=== PATIENT | male | born 1950 | race Caucasian/White ===

== ENCOUNTER 2022-12-18 06:20 | Observation (INO) ==
--- NOTE | 2022-11-17 10:50 | PAT Medication Instructions ---
Medication Instructions Date of Service November 17, 2022 Home Medications cetirizine 10 mg tablet (Zyrtec) 10 mg PO QAM cholecalciferol (vitamin D3) 50 mcg (2,000 unit) capsule (Vitamin D3) 50 mcg PO QAM coenzyme Q10 100 mg capsule (CoQ-10) 100 mg PO HS fluoxetine 20 mg tablet 20 mg PO QAM lamotrigine 25 mg tablet 100 mg PO QAM levothyroxine 200 mcg tablet (Synthroid) 200 mcg PO QAM levothyroxine 25 mcg tablet (Synthroid) 25 mcg PO QAM multivit,tx w/iron (hematinic) 1 tab PO QAM multivitamin 1 cap PO QAM simvastatin 20 mg tablet 20 mg PO HS tamsulosin 0.4 mg capsule 0.4 mg PO HS STOP taking 2 weeks before surgery coenzyme Q10 100 mg capsule (CoQ-10) 100 mg PO HS DO NOT take the morning of surgery cetirizine 10 mg tablet (Zyrtec) 10 mg PO QAM cholecalciferol (vitamin D3) 50 mcg (2,000 unit) capsule (Vitamin D3) 50 mcg PO QAM multivit,tx w/iron (hematinic) 1 tab PO QAM multivitamin 1 cap PO QAM Take morning of surgery With a small sip of water, OTHERWISE NOTHING TO EAT OR DRINK AFTER MIDNIGHT: fluoxetine 20 mg tablet 20 mg PO QAM lamotrigine 25 mg tablet 100 mg PO QAM levothyroxine 200 mcg tablet (Synthroid) 200 mcg PO QAM levothyroxine 25 mcg tablet (Synthroid) 25 mcg PO QAM Take evening before surgery simvastatin 20 mg tablet 20 mg PO HS tamsulosin 0.4 mg capsule 0.4 mg PO HS Other Notes If you have any questions please call us at [phone] or [phone] or [phone] or [phone]
--- NOTE | 2022-11-24 11:39 | Anesthesiology Consultation ---
Date of Service November 24, 2022 Assessment & Plan (1) Encounter for pre-operative examination: Chart Review Chart Review: Pending: Refer to Additional Notes / Consult section (pending response from neuro on optimization note, most recent cardio note, carotid testing if available, and PCP appt 12/01/22) and Patient seen in Pre Admission Testing - Awaiting routine PCP office visit 12/01/22 - Please send optimization note neuro re: if patient is optimized for surgery (Dr. Cosme- [facility] Jennifer) - Please obtain most recent cardio note and any carotid testing from cardio ([facility] at [place] office (Dr Jenn Marshall)) -Pt is NOT an Outpatient Joint candidate - Check [facility] AM DOS Per PAT appt on 11/24/22, patient denies any recent travel or large group activities. Chronic sinus symptoms- currently well controlled and stable. Pt is vaccinated for Covid. Will leave to surgeon's discretion if preop Covid testing needed. Educated on importance of using Covid precautions one week prior to surgery Teaching & Discussion Pre-Anesthesia Teaching/Discussion Notes: Instructed NPO after midnight before surgery,except medications with 15 cc of water. Medication instructions provided according to the PAT guidelines. History Surgery Operation Date: 12/18/22 09:20 Proposed Procedures p Right Total Shoulder Arthroplasty Reverse - Wisam Hernandez, Height/Weight Height: 5 ft 8 in Weight: 100.9 kg Allergies Allergy/AdvReac Type Severity Reaction Status Date / Time Sulfa (Sulfonamide Allergy Unknown remote hx: Verified 11/13/22 10:43 Antibiotics) ? rxn ? rash Medications Home Medications Medication Instructions Recorded Confirmed Last Taken cetirizine 10 mg tablet (Zyrtec) 10 mg PO QAM 11/13/22 11/13/22 Unknown cholecalciferol (vitamin D3) 50 50 mcg PO QAM 11/13/22 11/13/22 Unknown mcg (2,000 unit) capsule (Vitamin D3) coenzyme Q10 100 mg capsule 100 mg PO HS 11/13/22 11/13/22 Unknown (CoQ-10) fluoxetine 20 mg tablet 20 mg PO QAM 11/13/22 11/13/22 Unknown lamotrigine 25 mg tablet 100 mg PO QAM 11/13/22 11/13/22 Unknown levothyroxine 200 mcg tablet 200 mcg PO QAM 11/13/22 11/13/22 Unknown (Synthroid) levothyroxine 25 mcg tablet 25 mcg PO QAM 11/13/22 11/13/22 Unknown (Synthroid) multivit,tx w/iron (hematinic) 1 tab PO QAM 11/13/22 11/13/22 Unknown multivitamin 1 cap PO QAM 11/13/22 11/13/22 Unknown simvastatin 20 mg tablet 20 mg PO HS 11/13/22 11/13/22 Unknown tamsulosin 0.4 mg capsule 0.4 mg PO HS 11/13/22 11/13/22 Unknown Past Medical History Medical History (Updated 11/25/22 @ 12:03 by Zuleyka Huff PA-C) Anxiety Ascending aorta dilation Mildly dilated ascending aorta at 4.24 cm per 11/13/22 ECHO Chronic sinusitis DAILY SYMPTOMS INCLUDING H/A. NO CHANGE IN BASELINE CURRENTLY. FOLLOWS ENT. MOST RECENT SINUS INFECTION 4 WEEKS AGO. History of anesthesia reaction with first sinus surgery - had to stay hours longer due to headache Hypothyroidism Since iodine ablation (for hyperthyroidism) Memory problem Follows neurology (Dr. Cosme [facility]) Questionable silent seizures - started on lamotrigine several months ago- no episodes since that time Episodes - usually in the morning - occasionally- has short term memory issues during episodes No dementia/Alzheimer's per patient (ruled out) Osteoarthritis Overactive bladder Reactive hypoglycemia needs to eat something in the morning to keep blood sugar up Exercise / Class Metabolic Activity II 4-5 Yardwork/Stairs/Walk up hill (one flight of stairs - no chest pain or SOB ) Past Surgical History Surgical History History of appendectomy History of colonoscopy History of excision of pilonidal cyst History of left knee replacement History of sinus surgery x2 Past Anesthesia History No Hx of Anesthesia Complications and No Family Hx of Anesthesia Complications History of PONV No Hx of PONV and No Hx of Motion Sickness Social History Smoking Status: Never smoker Do You Dip or Chew Tobacco: No (HX , QUIT 40 YR AGO) alcohol intake frequency: other Alcohol Intake Frequency Comment: NOT CURRENT /NONE FOR YRS AT LEAST 3 Hx Substance Use: No substance use type: does not use Review of Systems Patient denies chest pain, shortness of breath, dyspnea on exertion, reflux, cough, wheezing, palpitations. No hx of stroke, RI, apnea/snoring. No hx of blood clots or blood transfusions Physical Exam Vital Signs VITALS BP 155/77 P 52 TEMP 98.0 SP02 97% RESP 16 Constitutional no acute distress ENMT Mouth: no TMJ clicking Thyromental Distance: > or= 3.5 Finger Breadths (3.5) Mallampati Class: III Partial lower denture Missing back and side upper teeth Neck + limited neck extension Respiratory normal respiratory effort; no respiratory distress Auscultation: lungs clear to auscultation bilaterally; no wheezes Cardiovascular Rate/Rhythm: regular rate and regular rhythm Heart Sounds: + murmur (II/ murmur ) Vessels: + carotid bruit (faint carotid bruits bilaterally vs radiation from murmur ) Musculoskeletal Spine: no pain with cervical ROM Extremities: extremities normal to inspection Psychiatric Orientation: alert Lab Results Anesthesia Preop Results Results Anesthesia Widget: WBC 6.04 K/ul (4.8-10.8) 11/24/22 Hgb 13.5 g/dl (14.0-18.0) L 11/24/22 Hct 40.5 % (42.0-52.0) L 11/24/22 Plt 240 K/uL (130-400) 11/24/22 Na 139 mmol/L (136-145) 11/24/22 K 4.6 mmol/L (3.5-5.1) 11/24/22 Cl 104 mmol/L (98-107) 11/24/22 CO2 29 mmol/L (21-32) 11/24/22 BUN 20 mg/dl (6-23) 11/24/22 Creat 1.04 mg/dl (0.6-1.4) 11/24/22 Glucose Level 120 mg/dl (70-99(Fasting)) H 11/24/22 PT 11.4 Seconds (9.0-12.0) 11/24/22 PTT 27.7 Seconds (21.0-31.0) 11/24/22 INR 1.0 (0.9-1.1) 11/24/22 Blood Type A Positive 11/24/22 Antibody Screen NEGATIVE 11/24/22 Testing Electrocardiogram Date: 11/25/22 Findings: + SB @ (50bpm ) Otherwise normal EKG per cardio. Chest X-Ray Date: 11/24/22 FINDINGS: No pneumothorax. No pleural effusions. There are low lung volumes. Mild interstitial thickening at the lung bases persists. The upper lung zones remain clear. No new focal lung consolidations to suggest a pneumonia. No evidence for pulmonary edema. The cardiac silhouette is top normal in size. There is a calcified and tortuous thoracic aorta again noted. IMPRESSION: No significant change compared to the prior study. No acute process. Echocardiogram Date: 11/13/22 EF: 55-60% LV Function: normal RWMA: + none Other Findings: no diastolic dysfunction Valvular Disease: + no significant valvular disease Mildly dilated ascending aorta. Ascending aorta measured at 4.24 cm No pericardial effusion is seen COVID-19 Risk Screen Screening Information COVID-19 Screen Date: 11/24/22 Exposure 21 Days Family/Household +COVID Last 21 Days: No Exposure 10 Days Any COVID Exposure Last 10 Days: No Symptoms Last 10 Days Experienced COVID Sx Last 10 Days: No + COVID 0-90 Days COVID + in Last 0-90 Days: No Risk Plan COVID Risk Plan: No Risk Identified Patient Education COVID Preop Screening Education Complete: Yes
[~2022-12-18 06:20] MED LIST: ACETAMINOPHEN 500 MG TAB PO SCH; GABAPENTIN 300 MG CAP PO SCH; LR 15ML/HR IV SCH; LR 60ML/HR IV SCH; ORTHO JOINT MIX INFIL SCH; TRANEXAMIC ACID 1,000 MG **IV Intra-op IV SCH; TRANEXAMIC ACID 1,000 MG **IV Pre-op IV SCH; ceFAZolin 2000MG 2,000 MG/15 ML SYR IV SCH; dexAMETHasone 4 MG TAB PO SCH
[2022-12-18] MEDS ORDERED: BUPIVACAINE 0.5 % 5 MG/1 ML PF 10ML VIAL ONE (06:28)
[2022-12-18] MEDS ORDERED: LIDOCAINE 2% 2 ML VIAL/AMP(20MG/ML) INFIL ONE (06:42)
[2022-12-18] MEDS ORDERED: ONDANSETRON INJ 2 MG/ML 2 ML VIAL ONE (06:42)
[2022-12-18] MEDS ORDERED: PROPOFOL IV EMULSION 10 MG/ML 20 ML VIAL IV ONE (06:42)
[2022-12-18] MEDS ORDERED: fentaNYL citrate PF 100 MCG/2 ML VIAL ONE (06:43)
[2022-12-18] MEDS ORDERED: MIDAZOLAM HCL 1 MG/ML 2ML VIAL ONE (06:43)
--- NOTE | 2022-12-18 06:54 | History & Physical Bridge Note ---
Date of Service December 18, 2022 History & Physical Bridge Note I have examined the patient, reviewed the History & Physical and in the interval since the performance of the History & Physical I have noted the following changes of clinical significance: no changes noted
[2022-12-18] MEDS ORDERED: ORTHO JOINT ANESTHETIC ONE (07:08)
[2022-12-18] MEDS ORDERED: fentaNYL citrate PF 100 MCG/2 ML VIAL IV PRN (07:46)
[2022-12-18] MEDS ORDERED: ONDANSETRON INJ 2 MG/ML 2 ML VIAL IV PRN ×2 (07:46→10:45)
[2022-12-18] MEDS ORDERED: ATROPINE SULFATE 0.1 MG/ML 10ML SYR IV PRN (07:46)
[2022-12-18] MEDS ORDERED: KETOROLAC 30 MG/ML VIAL IV PRN (07:46)
--- NOTE | 2022-12-18 09:13 | Operative Report ---
PG Post Operative Report Pre & Post Diagnosis Operation Date: 12/18/22 08:00 Pre-Op Diagnosis: Right Shoulder cuff tear arthropathy with tendinopathy long head of biceps tendon Post-Op Diagnosis: Right Shoulder cuff tear arthropathy with tendinopathy long head of biceps tendon I identified the patient and participated in the time-out.: Yes Procedure Operation Date: 12/18/22 08:00 Actual Procedures p Right Reverse Total Shoulder Arthroplasty(Right) with open biceps tenodesis as a distinct and separate procedure (modifier 59)- Wisam Heranndez DO Surgeon Wisam Hernandez DO Ship Keeper Wisam Segovia PA-C Estimated Blood Loss 150 Findings Consistent with Post-Op Diagnosis Specimens Right humeral head Description of Procedure A CPT code modifier 59: The long head of the biceps tendon was enlarged and inflamed consistent with tendinopathy. A tenodesis was opted. This was a separate and distinct portion of the procedure. For these reasons, a CPT code modifier 59 will be added to this case. Implants used: I used a [employer]omet Comprehensive reverse total shoulder arthroplasty system with a size 16 press fit micro humeral stem, a +3 offset humeral tray and a standard humeral bearing, a 25 mm small augment baseplate with a 6.5 mm central screw and superior and inferior locking screws, and a size 40 mm eccentric glenosphere. Deepak arrived at [facility] for the above procedure. He was seen in the preoperative holding area and the operative extremity was identified and signed. He was given a preoperative antibiotic, TXA, and an interscalene nerve block. He was taken back to the operating room, laid on table in supine position, and put under general anesthesia. He was then put into the beachchair position. The shoulder was then prepped and draped in sterile fashion. A timeout was done and the patient and the operative extremity was properly identified. A deltopectoral approach was used. Dissection was taken down through the fascia and the deltoid was retracted laterally and the conjoined tendon was retracted medially. The anterior shoulder was exposed. The biceps groove was opened up and the biceps tendon was examined extensively. The biceps tendon demonstrated enlargement and inflammatory changes consistent with longstanding inflammation in the context of osteoarthritis and cuff arthropathy. The long head of the biceps tendon was then tenodesed to the upper border of the pectoralis major. This was a separate and distinct portion of the procedure. The subscapularis was then directly released off the lesser tuberosity with a peel technique. The inferior capsule was released and the humeral head was dislocated. A canal finding reamer was sent down the center of the humeral canal. Sequential reaming up to a size 16 reamer was done. Off that reamer, a proximal humeral resection guide was placed. The proximal humerus was resected at 135 of inclination and 25 of retroversion. Osteophytes were then removed and the glenoid was exposed. Time was spent doing a complete capsular and labral release. The glenoid guide was then placed in the inferior aspect of the glenoid. A 3.2 mm Steinmann pin was then placed into the glenoid vault at 10 of inclination. The glenoid baseplate was then reamed. The final size 25 mm small augment baseplate was then impacted in the place. A 6.5 mm central screw was then placed followed by superior and inferior locking screws. A 40 mm eccentric glenosphere was then impacted into place. Surrounding soft tissues were then injected with 100 cc an orthopedic pain control cocktail. The proximal humerus was then exposed. Sequential broaching of the humerus up to a size 16 broach was done. Off that broach a +3 offset humeral tray was trialed. The shoulder was then reduced, brought through a full range of motion, and felt to be stable. The shoulder was then dislocated and the broach was removed. The final size 16 micro press-fit humeral stem was then impacted into place. A standard humeral bearing was then snapped onto a +3 offset humeral tray. The humeral tray was then impacted onto the humeral stem. The shoulder was once again reduced, brought through a full range of motion, and felt to be stable. The subscapularis was then tenodesed back to the lesser tuberosity with transosseous FiberWire sutures and side to side sutures with the arm in 45 of external rotation. A dilute betadyne lavage was then done for 3 minutes. The joint was then irrigated with normal saline solution. Hemostasis was obtained. The interval was closed with 2-0 Vicryl suture. The skin was then closed with 2-0 Vicryl and stella. A Silverlon dressing was placed and the arm was rested in a regular arm sling. He was then extubated and transferred to a hospital bed. He taken to the postanesthesia care unit in stable condition. He tolerated the procedure well. Wisam Segovia PA-C, was present for the entire procedure. He was critical for patient positioning, prepping, draping, retraction exposure, wound closure and application of sterile dressing. I attest to the content of the Intraoperative Record and any orders documented therein. Any exceptions are noted below.
[2022-12-18] MEDS ORDERED: MAGNESIUM HYDROXIDE SUSP 30 ML UDC PO PRN (10:45)
[2022-12-18] MEDS ORDERED: bisacodyL 10 MG SUPP PR PRN (10:45)
[2022-12-18] MEDS ORDERED: HYDROmorphone INJ 0.5 MG/0.5 ML SYR IV PRN (10:45)
[2022-12-18] MEDS ORDERED: NALOXONE HCL 0.4 MG/1 ML VIAL/CARP IV PRN (10:45)
[2022-12-18] MEDS ORDERED: METOCLOPRAMIDE HCL INJ 5 MG/ML 2 ML VIAL IV PRN (10:45)
[2022-12-18] MEDS ORDERED: oxyCODONE HCL IR 5 MG TAB (IMMEDIATE RELEASE) PO PRN (10:45)
[2022-12-18] MEDS: SODIUM CHLORIDE 0.9% 1000ML 1,000 ML IV SCH ×2 (11:07→20:35)
[2022-12-18] MEDS: KETOROLAC TROMETHAMINE 15 MG/ML VIAL IV SCH ×3 (11:14→23:03)
--- NOTE | 2022-12-18 11:19 | XRay Report ---
XR shoulder RT min 2V routine CLINICAL HISTORY: Post shoulder surgery COMPARISON STUDY: None. FINDINGS: Status post reverse right total shoulder arthroplasty. Hardware appears intact. No fracture or dislocation. Skin stella are in place. IMPRESSION: Status post reverse right total shoulder arthroplasty. No evidence for hardware complica tion. ACT 112: Negative or not required by law. Electronically signed by: Dayo Morley M.D. 12/18/2022 11:17 AM
--- NOTE | 2022-12-18 12:23 | Anesthesiology Progress Note ---
Date of Service December 18, 2022 Anesthesia Post Procedure Vital Signs Vital Signs: Temp Pulse Pulse Resp BP Pulse Ox O2 Del Method 12/18/22 11:10 37.2 C 62 15 143/77 H 97 Room Air 12/18/22 10:40 36.6 C 60 16 118/67 97 Room Air 12/18/22 10:20 60 19 115/60 92 Room Air 12/18/22 10:10 56 L 17 125/64 93 Room Air 12/18/22 10:00 36 C L 52 L 19 123/66 93 Room Air 12/18/22 09:50 52 L 21 120/61 94 Room Air 12/18/22 09:40 58 L 19 132/68 95 Room Air 12/18/22 09:32 36.1 C L 58 L 13 126/60 94 Room Air 12/18/22 07:05 36.6 C 57 L 18 141/79 H 96 Room Air Transfer of Care Handoff Completed per policy Notes Mental Status: alert / awake / arousable Patient Amnestic to Procedure: Yes Nausea / Vomiting: adequately controlled Pain: adequately controlled Airway Patency, RR, SpO2: stable & adequate BP & HR: stable & adequate Hydration State: stable & adequate Anesthetic Complications: no major complications apparent
[2022-12-18] MEDS: ACETAMINOPHEN 500 MG TAB PO SCH ×2 (13:15→23:03)
[2022-12-18] MEDS: ceFAZolin 2000MG 2,000 MG/15 ML SYR IV SCH ×2 (15:23→23:03)
[2022-12-18] MEDS: DOCUSATE SODIUM 100 MG CAP PO SCH (20:37)
[2022-12-18] MEDS ORDERED: TAMSULOSIN HCL 0.4 MG CAP PO SCH (21:00)
[2022-12-18] MEDS ORDERED: SIMVASTATIN 20 MG TAB PO SCH (21:00)
[2022-12-18] MEDS ORDERED: SENNA 8.6 MG TAB PO SCH (21:00)
[2022-12-19] MEDS: ACETAMINOPHEN 500 MG TAB PO SCH (04:54)
[2022-12-19] MEDS: KETOROLAC TROMETHAMINE 15 MG/ML VIAL IV SCH (04:55)
--- NOTE | 2022-12-19 06:02 | Orthopedic Progress Note ---
Date of Service December 19, 2022 Assessment & Plan (1) Status post reverse total replacement of right shoulder: Overall he is doing very well. He is not having much pain in the right shoulder. He will be seen by physical therapy today for ambulation and range of motion exercises. He can be discharged home later today. He will follow-up with orthopedics in 2 weeks. Lakia Sotelo was seen and examined at bedside this morning. Overall is doing very well. He is not having much pain in the right shoulder. He was able to get some sleep last night. Has no complaints.. Review of Systems All systems reviewed & are unremarkable except as noted in HPI & below. Physical Exam On physical examination of the right shoulder, the dressing is clean and dry. He has active motion of his hand and his wrist. He is wearing his sling as instructed.. Results & Data Results & Data Laboratory Results . Diagnostic Findings Postoperative x-rays of the right shoulder show the prosthesis to be in anatomic alignment without any evidence of fracture, screws, or loosening. PG Care Time/CCT Total # of Minutes Spent Total Time Spent with Patient: Total time spent is greater than 50% in coordination of care (as documented) at patient's floor/unit and/or counseling patient: Coding Level of Care Code 14332 Post Operative Follow-Up Diagnoses Status post reverse total replacement of right shoulder Z96.611
--- NOTE | 2022-12-19 06:03 | Discharge Summary ---
Date of Service December 19, 2022 Principal Diagnosis Same as "Discharge Diagnosis" noted below under Discharge Instructions. Discharge Exam On physical examination of the right shoulder, the dressing is clean and dry. He has active motion of his hand and his wrist. He is wearing his sling as instructed.. Discharge Data Procedures Performed Operation Date: 12/18/22 08:00 Actual Procedures p Right Reverse Total Shoulder Arthroplasty(Right) - Wisam Hernandez DO Ordered Studies 12/18/22 05:00 US - OR guided needle placemen Routine Hospital Course (1) Status post reverse total replacement of right shoulder: On December 18, 2022 Deepak arrived at [facility] and underwent a right reverse shoulder replaced without complication. He had a general anesthetic and a right interscalene nerve block. Postoperatively he was placed in a sling and transferred to the general orthopedic floors. His hospital course was uneventful. On postop day #1, his vital signs were stable and his pain was well controlled. He was able to participate well with physical therapy doing ambulation and range of motion exercises. He was then discharged home. He will follow-up with orthopedics in 2 weeks. PG Care Time/CCT Total # of Minutes Spent Total Time Spent with Patient: Total time spent is greater than 50% in coordination of care (as documented) at patient's floor/unit and/or counseling patient: Discharge Plan Discharge Items Patient Disposition: Home - Home Health Services Reason For Visit: Right Shoulder Degenerative Joint Disease Discharge Diagnosis: Right reverse shoulder replacement Activity: Resume your previous activity Non-emergency contact: Surgeon Call non-emergency contact if: your wound has increased redness and your wound has increased drainage Follow-up/Referrals: Naresh Booth D.O. [Primary Care Provider] - Diet: Regular Addtl Attending Provider Instructions: Activity and Therapy Recommendations: * If you are using [facility] then therapy will be provided at your home until they feel you have accomplished all of your goals. * If you are using [facility] then Physical Therapy will be provided until they feel you are ready to start Outpatient Physical Therapy. * If you are not using home therapy then Outpatient Physical Therapy should start about 3-5 days from your day of surgery. Therapy will last about 8-12 weeks * Wear your sling for 3 weeks, unless otherwise instructed. You may remove your sling to shower and to dress, but otherwise, you should be in your sling at all times, including while sleeping * The shoulder replacement is very stable and you can use your hand while in the sling * You were shown a series of exercises in the hospital. Do these exercises daily including the exercises you were shown in physical therapy. Medications: * Narcotic You will likely be sent home from the hospital with a prescription for the narcotic pain medication that worked best throughout your stay. * Other medications may be prescribed for specific circumstances. If you have any questions, please call the office at . * Resume previous home medications unless otherwise instructed Dressing Care: Leave the Silverlon dressing in place for 7 days. After 7 days you may remove the dressing. If the incision is not draining then you may leave the stella open to air. If there is a little bit of drainage or if the stella are getting stuck on your clothing then cover the incision with a dry dressing. The stella will be removed at your 2 week follow-up appointment. Showering: You may shower with the Silverlon dressing in place. Do not let the shower spray hit the dressing directly. Pat the Silverlon dressing dry. If the dressing becomes wet underneath, then simply remove the dressing. Keep the incision dry until you are 7 days out from the day of surgery. After 7 days you may remove the Silverlon dressing and shower with the stella exposed. Let soapy water run over the stella and pat them dry. Do not scrub or soak the incision. Things To Watch For: * Drainage from the incision site that occurs more than one week after your surg yareli. * Increased redness at the incision site. * Fever above 102 degrees Fahrenheit. * Unusual chest pain or shortness of breath. * Call [facility] at with any of the above problems Follow-Up Visit: Follow-up with Dr. Hernandez's PA (Wisam Segovia) 2-3 weeks after your day of surgery. He will remove your stella and answer any questions. If you have any additional questions or concerns, Dr Hernandez is usually in the office at the same time and will be available An appointment was probably scheduled when you signed-up for surgery in the [facility]. If you have any questions call More detailed instructions as well as Frequently Asked Questions were provided in a folder by our office when you signed-up for surgery. Please review these instructions when you get home. If you have any further questions or concerns, please feel free to call the office at [phone] Pending Studies at Discharge: No Stand-Alone Forms: My [facility], Smoking Cessation Medications and DC Order Prescriptions: New oxycodone-acetaminophen 5-325 mg tablet 1 tab PO Q6H PRN (Reason: pain) Qty: 30 0RF Continued cetirizine [Zyrtec] 10 mg Tablet 10 mg PO QAM levothyroxine [Synthroid] 25 mcg Tablet 25 mcg PO QAM lamotrigine [Lamictal] 25 mg Tablet 100 mg PO QAM tamsulosin 0.4 mg Capsule 0.4 mg PO HS simvastatin 20 mg Tablet 20 mg PO HS fluoxetine 20 mg Tablet 20 mg PO QAM levothyroxine [Synthroid] 200 mcg Tablet 200 mcg PO QAM multivitamin Capsule 1 cap PO QAM B Complex Plus Vitamin C Tablet 1 tab PO QAM coenzyme Q10 [CoQ-10] 100 mg Capsule 100 mg PO HS cholecalciferol (vitamin D3) [Vitamin D3] 50 mcg (2,000 unit) Capsule 50 mcg PO QAM Admission Data Admit Date/Time: 12/18/22 09:31 Attending Provider: Wisam Hernandez Admit Provider: Wisam Hernandez Primary Care Provider: Naresh Booth
[2022-12-19] MEDS ORDERED: LEVOTHYROXINE SODIUM 200 MCG TABLET PO SCH (06:30)
[2022-12-19] MEDS ORDERED: LEVOTHYROXINE SODIUM 25 MCG TABLET PO SCH (06:30)
[2022-12-19] MEDS ORDERED: dexAMETHasone 4 MG TAB PO SCH (08:00)
[2022-12-19] MEDS: DOCUSATE SODIUM 100 MG CAP PO SCH (08:51)
[2022-12-19] MEDS ORDERED: MULTIVITAMIN TAB PO SCH (09:00)
[2022-12-19] MEDS ORDERED: FLUoxetine HCL 20 MG CAP PO SCH (09:00)
[2022-12-19] MEDS ORDERED: lamoTRIgine 100 MG TAB PO SCH (09:00)
[2022-12-19] MEDS ORDERED: CETIRIZINE HCL 10 MG TABLET PO SCH (09:00)
== END 2022-12-19 11:24 | disposition home health service (06) ==
LOC: 3E 06:20 → ASU 06:20

== ENCOUNTER 2024-09-11 10:04 | Observation (INO) ==
--- NOTE | 2024-08-14 15:42 | PAT Medication Instructions ---
Medication Instructions Date of Service August 14, 2024 Home Medications Medication Instructions Recorded oxycodone-acetaminophen 5 mg-325 1 tab PO Q6H PRN pain #30 tabs 12/19/ mg tablet amoxicillin 500 mg tablet 2,000 mg (4 x 500 mg) PO ONCE #4 08/01/ tabs cetirizine 10 mg tablet (Zyrtec) 10 mg PO QAM cholecalciferol (vitamin D3) 50 mcg (2,000 unit) capsule (Vitamin D3) 50 mcg PO QAM fluoxetine 20 mg tablet 20 mg PO QAM lamotrigine 25 mg tablet (Lamictal) 100 mg PO QAM levothyroxine 200 mcg tablet (Synthroid) 200 mcg PO QAM multivitamin 1 cap PO QAM simvastatin 20 mg tablet 20 mg PO HS tamsulosin 0.4 mg capsule 0.4 mg PO HS oxycodone-acetaminophen 5 mg-325 mg tablet 1 tab PO Q6H PRN amoxicillin 500 mg tablet 2,000 mg (4 x 500 mg) PO ONCE Gentamicin Nasal Solution 1 dose NA DAILY ibuprofen 800 mg tablet 800 mg PO Q8H PRN lamotrigine 50 mg tablet,extended release 24 hr 50 mg PO HS magnesium 200 mg tablet 400 mg PO QAM Continue as directed amoxicillin 500 mg tablet 2,000 mg (4 x 500 mg) PO ONCE Gentamicin Nasal Solution 1 dose NA DAILY ASK your surgeon for instructions ibuprofen 800 mg tablet 800 mg PO Q8H PRN DO NOT take the morning of surgery cetirizine 10 mg tablet (Zyrtec) 10 mg PO QAM cholecalciferol (vitamin D3) 50 mcg (2,000 unit) capsule (Vitamin D3) 50 mcg PO QAM multivitamin 1 cap PO QAM magnesium 200 mg tablet 400 mg PO QAM Take morning of surgery With a small sip of water, OTHERWISE NOTHING TO EAT OR DRINK AFTER MIDNIGHT: fluoxetine 20 mg tablet 20 mg PO QAM lamotrigine 25 mg tablet (Lamictal) 100 mg PO QAM levothyroxine 200 mcg tablet (Synthroid) 200 mcg PO QAM oxycodone-acetaminophen 5 mg-325 mg tablet 1 tab PO Q6H PRN(if needed) Take evening before surgery simvastatin 20 mg tablet 20 mg PO HS tamsulosin 0.4 mg capsule 0.4 mg PO HS oxycodone-acetaminophen 5 mg-325 mg tablet 1 tab PO Q6H PRN(if needed) lamotrigine 50 mg tablet,extended release 24 hr 50 mg PO HS Other Notes If you have any questions please call us at [phone] or [phone] or [phone] or [phone]
--- NOTE | 2024-08-22 10:04 | Anesthesiology Consultation ---
Date of Service August 22, 2024 Assessment & Plan (1) Encounter for pre-operative examination: - Check BSG DOS (hx hypoglycemia episodes, especially when fasting) - Infectious disease screening: Per assessment on 08/22/24- No known recent infectious disease contacts or current infectious disease symptoms. - Outpatient joint assessment: Pt currently scheduled for inpatient pathway. If surgeon requests review for outpatient joint pathway, patient is not recommended candidate for outpatient joint program from anesthesia standpoint based on available information. - S/P Right reverse TSA (12/18/22): LMA#5 + regional at [facility] - Neurologic hx: Memory impairment. No dementia/Alzheimer's per patient (ruled out). Questionable silent seizures. Following with neurology. Resolution in episodes after starting lamotrigine several months ago. Note written to neurology regarding upcoming surgery- Awaiting neurology response ([facility] neurology). Patient otherwise acceptable risk for surgery. Chart Review Chart Review: Patient seen in Pre Admission Testing Teaching & Discussion Pre-Anesthesia Teaching/Discussion Notes: Instructed NPO after midnight before surgery,except medications with 15 cc of water. Medication instructions provided according to the PAT guidelines. History Surgery Operation Date: 09/11/24 08:00 Proposed Procedures p Left Reverse Total Shoulder Arthroplasty - Wisam Hernandez, DO Height/Weight Height: 5 ft 9 in Weight: 101 kg Allergies Allergy/AdvReac Type Severity Reaction Status Date / Time Sulfa (Sulfonamide Allergy Unknown Unknown Verified 08/17/24 15:50 Antibiotics) Medications Home Medications Medication Instructions Recorded Confirmed Last Taken cetirizine 10 mg tablet (Zyrtec) 10 mg PO QAM 11/13/22 08/10/24 12/16/22 cholecalciferol (vitamin D3) 50 50 mcg PO QAM 11/13/22 08/10/24 12/17/22 07:30 mcg (2,000 unit) capsule (Vitamin D3) fluoxetine 20 mg tablet 20 mg PO QAM 11/13/22 08/10/24 12/18/22 05:15 lamotrigine 25 mg tablet (Lamictal) 100 mg PO QAM 11/13/22 08/10/24 12/18/22 05:15 levothyroxine 200 mcg tablet 200 mcg PO QAM 11/13/22 08/10/24 12/18/22 05:15 (Synthroid) multivitamin 1 cap PO QAM 11/13/22 08/10/24 12/17/22 07:30 simvastatin 20 mg tablet 20 mg PO HS 11/13/22 08/10/24 12/17/22 21:00 tamsulosin 0.4 mg capsule 0.4 mg PO HS 11/13/22 08/10/24 12/17/22 21:00 oxycodone-acetaminophen 5 mg-325 1 tab PO Q6H PRN pain #30 tabs 12/19/22 08/10/24 Unknown mg tablet amoxicillin 500 mg tablet 2,000 mg (4 x 500 mg) PO ONCE #4 08/01/24 08/10/24 Unknown tabs Gentamicin Nasal Solution 1 dose NA DAILY 08/10/24 08/10/24 Unknown ibuprofen 800 mg tablet 800 mg PO Q8H PRN Pain 08/10/24 08/10/24 Unknown lamotrigine 50 mg tablet,extended 50 mg PO HS 08/10/24 08/10/24 Unknown release 24 hr magnesium 200 mg tablet 400 mg PO QAM 08/10/24 08/10/24 Unknown Past Medical History Medical History Anxiety Ascending aorta dilation Mildly dilated ascending aorta at 4.24 cm per 11/13/[address] Marshall [facility] Chronic sinusitis Improved/controlled after most recent sinus surgery Hypoglycemia "Needs to eat something in the morning to keep blood sugar up" Hypothyroidism Since iodine ablation (for hyperthyroidism) Memory problem No dementia/Alzheimer's per patient (ruled out). Questionable silent seizures . Following with neurology (Dr. Cosme/[facility]). Resolution in episodes after starting lamotrigine several months ago. Osteoarthritis Overactive bladder Exercise / Class Metabolic Activity II 4-5 Yardwork/Stairs/Walk up hill Past Surgical History Surgical History History of anesthesia reaction with first sinus surgery - had to stay hours longer due to headache History of appendectomy History of cholecystectomy History of colonoscopy History of excision of pilonidal cyst History of left knee replacement History of sinus surgery x2 History of tooth extraction Status post reverse total arthroplasty of right shoulder Right reverse TSA (12/18/22): LMA#5 + regional at [facility] Past Anesthesia History No Family Hx of Anesthesia Complications and Other (first sinus surgery - had to stay hours longer due to headache ) History of PONV No Hx of PONV and No Hx of Motion Sickness Social History Smoking Status: Never smoker Do You Dip or Chew Tobacco: No (Remote hx/quit) Hx Alcohol Use: No alcohol intake frequency: other Hx Substance Use: No substance use type: does not use Review of Systems Patient denies chest pain, shortness of breath, dyspnea on exertion, fever, chills, cough, wheezing, palpitations. Physical Exam Vital Signs BP 147/70 P 55 TEMP 97.6 SP02 97%RA RESP 16 Physical Full cervical extension range of motion. Full TMJ range of motion. TMD 3 finger breaths Mallampati Score III Dentition: lower partial Lungs: clear throughout to auscultation Cardiac: regular rate and rhythm, no murmurs noted Spine: normal Carotid arteries: negative bruit Extremities: no LE edema Lab Results Anesthesia Preop Results Results Anesthesia Widget: WBC 7.99 K/ul (4.8-10.8) 08/22/24 Hgb 14.4 g/dl (14.0-18.0) 08/22/24 Hct 42.6 % (42.0-52.0) 08/22/24 Plt 254 K/uL (130-400) 08/22/24 Na 138 mmol/L (136-145) 08/22/24 K 4.7 mmol/L (3.5-5.1) 08/22/24 Cl 103 mmol/L (98-107) 08/22/24 CO2 31 mmol/L (21-32) 08/22/24 BUN 22 mg/dl (6-23) 08/22/24 Creat 1.06 mg/dl (0.6-1.4) 08/22/24 Glucose Level 94 mg/dl (70-99(Fasting)) 08/22/24 PT 11.3 Seconds (9.0-12.0) 08/22/24 PTT 28 Seconds (21-31) 08/22/24 INR 1.0 (0.9-1.1) 08/22/24 Blood Type A Positive 08/22/24 Antibody Screen NEGATIVE 08/22/24 Testing Electrocardiogram Date: 08/22/24 SB at 46bpm. LAD. RBBB. Minimal voltage criteria for LVH, may be normal variant. Chest X-Ray Date: 08/22/24 FINDINGS: There is stable mild cardiomegaly with mild pulmonary vascular congestion. Inspiration is shallow. Stable minimal stranding in the lung bases, likely scarring or atelectasis. No new consolidation or pleural effusion. No pneumothorax. IMPRESSION: Stable exam. Echocardiogram Date: 11/13/22 LVEF 55-60%. Mildly dilated ascending aorta. Trivial AR. Ascending aorta measured at 4.24cm. No RWMA. No pericardial effusion.
[~2024-09-11 10:04] MED LIST changes: -ACETAMINOPHEN 500 MG TAB PO SCH; +BUPIVACAINE 0.5 % 5 MG/1 ML PF 10ML VIAL ONE; -GABAPENTIN 300 MG CAP PO SCH; -LR 15ML/HR IV SCH; -LR 60ML/HR IV SCH; -ORTHO JOINT MIX INFIL SCH; -TRANEXAMIC ACID 1,000 MG **IV Intra-op IV SCH; -TRANEXAMIC ACID 1,000 MG **IV Pre-op IV SCH; -ceFAZolin 2000MG 2,000 MG/15 ML SYR IV SCH; -dexAMETHasone 4 MG TAB PO SCH
[2024-09-11] MEDS ORDERED: MIDAZOLAM HCL 1 MG/ML 2ML VIAL ONE (10:51)
[2024-09-11] MEDS ORDERED: fentaNYL citrate PF 100 MCG/2 ML VIAL ONE (10:51)
[2024-09-11] MEDS ORDERED: LIDOCAINE 2% 2 ML VIAL/AMP(20MG/ML) INFIL ONE (10:52)
[2024-09-11] MEDS ORDERED: ONDANSETRON INJ 2 MG/ML 2 ML VIAL ONE (10:52)
[2024-09-11] MEDS ORDERED: PROPOFOL IV EMULSION 10 MG/ML 20 ML VIAL IV ONE (10:52)
[2024-09-11] MEDS ORDERED: DEXAMETHASONE SOD INJ 4 MG/ML VIAL ONE (10:52)
[2024-09-11] MEDS: LR 500ML BOLUS, THEN 15ML/HR IV SCH (11:01)
[2024-09-11] MEDS: dexAMETHasone**PF** 10 MG/ML VIAL IV SCH (11:02)
[2024-09-11] MEDS: LR 60ML/HR IV SCH (11:03)
[2024-09-11] MEDS: ACETAMINOPHEN 500 MG TAB PO SCH ×2 (11:03→15:32)
[2024-09-11] MEDS: FAMOTIDINE 20 MG TAB PO SCH (11:03)
[2024-09-11] MEDS: GABAPENTIN 300 MG CAP PO SCH (11:03)
[2024-09-11] MEDS ORDERED: ePHEDrine sulfate 50 MG/ML AMP ONE (11:12)
--- NOTE | 2024-09-11 11:24 | History & Physical Bridge Note ---
Date of Service September 11, 2024 History & Physical Bridge Note I have examined the patient, reviewed the History & Physical and in the interval since the performance of the History & Physical I have noted the following changes of clinical significance: no changes noted
[2024-09-11] MEDS ORDERED: fentaNYL citrate PF 100 MCG/2 ML VIAL IV PRN (11:47)
[2024-09-11] MEDS ORDERED: ONDANSETRON INJ 2 MG/ML 2 ML VIAL IV PRN ×2 (11:47→14:31)
[2024-09-11] MEDS ORDERED: ATROPINE SULFATE 0.1 MG/ML 10ML SYR IV PRN (11:47)
[2024-09-11] MEDS ORDERED: ePHEDrine sulfate 50 MG/ML AMP IV PRN (11:47)
[2024-09-11] MEDS: TRANEXAMIC ACID 1,000 MG **IV Pre-op IV SCH (11:57)
[2024-09-11] MEDS: ceFAZolin 2000MG 2,000 MG/15 ML SYR IV SCH ×2 (12:20→20:21)
[2024-09-11] MEDS: ROPIV 0.5% 246mg, Ketorolac 30mg, EPINEPHrine 0.5mg in NSS INFIL SCH (13:00)
[2024-09-11] MEDS: TRANEXAMIC ACID 1,000 MG **IV Intra-op IV SCH (13:11)
[2024-09-11] MEDS: ORTHO JOINT ANESTHETIC ONE (13:19)
--- NOTE | 2024-09-11 13:24 | Operative Report ---
PG Post Operative Report Pre & Post Diagnosis Operation Date: 09/11/24 12:00 Pre-Op Diagnosis: Cuff tear arthropathy of the left shoulder Post-Op Diagnosis: Cuff tear arthropathy of the left shoulder I identified the patient and participated in the time-out.: Yes Procedure Operation Date: 09/11/24 12:00 Actual Procedures p Left Reverse Total Shoulder Arthroplasty(Left) - Wisam Hernandez DO Surgeon Wisam Hernandez DO Float Remover Kingston Rosario PA-C Estimated Blood Loss 150 Findings Consistent with Post-Op Diagnosis Specimens Left humeral head Description of Procedure Implants used: I used a [employer] Comprehensive reverse total shoulder arthroplasty system with a size 13 press fit micro humeral stem, a +3 offset humeral tray and a standard humeral bearing, a 25 mm small augment baseplate with a 6.5 mm central screw and superior and inferior locking screws, and a size 40 mm eccentric glenosphere. Deepak arrived at [facility] for the above procedure. He was seen in the preoperative holding area and the operative extremity was identified and signed. He was given a preoperative antibiotic, TXA, and an interscalene nerve block. He was taken back to the operating room, laid on table in supine position, and put under general anesthesia. He was then put into the beachchair position. The shoulder was then prepped and draped in sterile fashion. A timeout was done and the patient and the operative extremity was properly identified. A deltopectoral approach was used. Dissection was taken down through the fascia and the deltoid was retracted laterally and the conjoined tendon was retracted medially. The anterior shoulder was exposed. The biceps tendon was chronically torn. The subscapularis was then directly released off the lesser tuberosity with a peel technique. The inferior capsule was released and the humeral head was dislocated. A canal finding reamer was sent down the center of the humeral canal. Sequential reaming up to a size 13 reamer was done. Off that reamer, a proximal humeral resection guide was placed. The proximal humerus was resected at 135 of inclination and 25 of retroversion. Osteophytes were then removed and the glenoid was exposed. Time was spent doing a complete capsular and labral release. The glenoid guide was then placed in the inferior aspect of the glenoid. A 3.2 mm Steinmann pin was then placed into the glenoid vault at 10 of inclination. The glenoid baseplate was then reamed. The final size 25 mm small augment baseplate was then impacted in the place. A 6.5 mm central screw was then placed followed by superior and inferior locking screws. A 40 mm eccentric glenosphere was then impacted into place. Surrounding soft tissues were then injected with 100 cc an orthopedic pain control cocktail. The proximal humerus was then exposed. Sequential broaching of the humerus up to a size 13 broach was done. Off that broach a +3 offset humeral tray was trialed. The shoulder was then reduced, brought through a full range of motion, and felt to be stable. The shoulder was then dislocated and the broach was removed. The final size 13 micro press-fit humeral stem was then impacted into place. A standard humeral bearing was then snapped onto a +3 offset humeral tray. The humeral tray was then impacted onto the humeral stem. The shoulder was once again reduced, brought through a full range of motion, and felt to be stable. The subscapularis was poor quality and unable to be repaired. A dilute betadyne lavage was then done for 3 minutes. The joint was then irrigated with normal saline solution. Hemostasis was obtained. The interval was closed with 2-0 Vicryl suture. The skin was then closed with 2-0 Vicryl and stella. A Silverlon dressing was placed and the arm was rested in a regular arm sling. He was then extubated and transferred to a hospital bed. He taken to the postanesthesia care unit in stable condition. He tolerated the procedure well. Kingston Rosario PA-C, was present for the entire procedure. He was critical for patient positioning, prepping, draping, retraction exposure, wound closure and application of sterile dressing. I attest to the content of the Intraoperative Record and any orders documented therein. Any exceptions are noted below.
[2024-09-11] MEDS ORDERED: MAGNESIUM HYDROXIDE SUSP 30 ML UDC PO PRN (14:31)
[2024-09-11] MEDS ORDERED: NALOXONE HCL 0.4 MG/1 ML VIAL/CARP IV PRN (14:31)
[2024-09-11] MEDS ORDERED: METOCLOPRAMIDE HCL INJ 5 MG/ML 2 ML VIAL IV PRN (14:31)
[2024-09-11] MEDS ORDERED: bisacodyL 10 MG SUPP PR PRN (14:31)
[2024-09-11] MEDS ORDERED: oxyCODONE HCL IR 5 MG TAB (IMMEDIATE RELEASE) PO PRN (14:31)
[2024-09-11] MEDS ORDERED: HYDROmorphone INJ 0.5 MG/0.5 ML SYR IV PRN (14:31)
[2024-09-11] MEDS: BUPIVACAINE LIPOSOME 1.3% 133 MG/10 ML VIAL ONE (14:32)
--- NOTE | 2024-09-11 14:34 | XRay Report ---
XR shoulder LT min 2V routine CLINICAL HISTORY: Post shoulder surgery COMPARISON: Left shoulder radiographs August 22, 2024. FINDINGS: Alignment of the reverse total left shoulder arthroplasty is anatomic. There is no peripro sthetic fracture or unexpected radiopaque foreign body. There are skin stella. IMPRESSION: Expected findings following reverse total left shoulder arthroplasty. ACT 112: Negative or not required by law. Electronically signed by: Gianni Man M.D. 09/11/2024 2:32 PM
--- NOTE | 2024-09-11 14:49 | Anesthesiology Progress Note ---
Date of Service September 11, 2024 Anesthesia Post Procedure Vital Signs Vital Signs: Temp Pulse Pulse Resp BP Pulse Ox O2 Del Method 09/11/24 14:30 36.4 C L 66 16 129/71 94 Room Air 09/11/24 14:10 63 22 115/62 94 Room Air 09/11/24 14:00 36.5 C 61 13 127/70 94 Room Air 09/11/24 13:50 65 21 140/64 94 Room Air 09/11/24 13:40 65 18 133/65 95 Oxymask 09/11/24 13:32 36.5 C 77 16 130/65 97 Oxymask 09/11/24 10:41 36.8 C 58 L 18 144/77 H 96 Room Air O2 Flow Rate 09/11/24 14:30 09/11/24 14:10 09/11/24 14:00 09/11/24 13:50 09/11/24 13:40 9 09/11/24 13:32 9 09/11/24 10:41 Transfer of Care Handoff Completed per policy Notes Mental Status: alert / awake / arousable and participated in evaluation Patient Amnestic to Procedure: Yes Nausea / Vomiting: adequately controlled Pain: adequately controlled Airway Patency, RR, SpO2: stable & adequate BP & HR: stable & adequate Hydration State: stable & adequate Anesthetic Complications: no major complications apparent and Pt Satisfied with anesthetic care
[2024-09-11] MEDS: KETOROLAC TROMETHAMINE 15 MG/ML VIAL IV SCH (15:33)
[2024-09-11] MEDS ORDERED: ceFAZolin 1000MG 1,000 MG/7.5 ML SYR IV SCH (19:45)
[2024-09-11] MEDS: lamoTRIgine 25 MG TAB PO SCH (20:22)
[2024-09-11] MEDS: SENNA 8.6 MG TAB PO SCH (20:22)
[2024-09-11] MEDS: DOCUSATE SODIUM 100 MG CAP PO SCH (20:22)
[2024-09-11] MEDS: TAMSULOSIN HCL 0.4 MG CAP PO SCH (20:23)
[2024-09-11] MEDS: SIMVASTATIN 20 MG TAB PO SCH (20:23)
[2024-09-12 03:10] VITALS: RESP 16
[2024-09-12] MEDS: LEVOTHYROXINE SODIUM 200 MCG TABLET PO SCH (06:06)
[2024-09-12 07:11] VITALS: BP 117/64; PULSE 54; TEMP 97.5; O2SAT 96
[2024-09-12] MEDS: MULTIVITAMIN TAB PO SCH (08:28)
[2024-09-12] MEDS: FLUoxetine HCL 20 MG CAP PO SCH (08:28)
[2024-09-12] MEDS: dexAMETHasone 4 MG TAB PO SCH (08:28)
[2024-09-12] MEDS: lamoTRIgine 100 MG TAB PO SCH (08:28)
--- NOTE | 2024-09-12 12:39 | Orthopedic Progress Note ---
Date of Service September 12, 2024 Assessment & Plan (1) Status post reverse total replacement of left shoulder: Assessment: Status post left reverse total shoulder arthroplasty. Plan: Overall, he is doing quite well today with good pain control left shoulder. He will work with physical therapy later this morning to work on range of motion exercises. He should remain in his sling until he status post 3 weeks. His dressing should remain in place until 7 days. After 7 days he may take off the Silverlon dressing. He can be discharged home later this morning after formal recommendations from physical therapy. He will follow-up with orthopedics in 2 weeks. He verbalized understanding and agrees with this plan. Subjective . Deepak was seen and evaluated this morning resting comfortably no apparent distress. He notes his pain is well-controlled to the left shoulder today. He is in his sling as directed. He has been up and out of bed without any significant issues. He has yet to work with physical therapy this morning. He denies any concerns with surgical incision site. Denies any active bleeding, discharge, or signs infection. He denies any other concerns today. Review of Systems All systems reviewed & are unremarkable except as noted in HPI & below. Physical Exam . On physical examination of the left shoulder, his dressing is intact, clean, dry, in place. No signs of active bleeding, discharge, or signs of infection. His left arm is in a sling as directed. He will wiggle all 5 digits. +2 radial pulse. Less than 2-second capillary refill. Normal sensation. Neurovascular intact. Results & Data Results & Data Laboratory Results . Diagnostic Findings . Shoulder X-Ray 09/11/24 13:34 XR shoulder LT min 2V routine CLINICAL HISTORY: Post shoulder surgery COMPARISON: Left shoulder radiographs August 22, 2024. FINDINGS: Alignment of the reverse total left shoulder arthroplasty is anatomic. There is no periprosthetic fracture or unexpected radiopaque foreign body. There are skin stella. IMPRESSION: Expected findings following reverse total left shoulder arthroplasty. ACT 112: Negative or not required by law. Electronically signed by: Gianni Man M.D. 09/11/2024 2:32 PM PG Care Time/CCT Total # of Minutes Spent Total Time Spent with Patient: Total time spent is greater than 50% in coordination of care (as documented) at patient's floor/unit and/or counseling patient: Coding Level of Care Code 58882 Post Operative Follow-Up Diagnoses Status post reverse total replacement of left shoulder Z96.612
--- NOTE | 2024-09-12 12:40 | Discharge Summary ---
Date of Service September 12, 2024 Principal Diagnosis Same as "Discharge Diagnosis" noted below under Discharge Instructions. Discharge Exam . On physical examination of the left shoulder, his dressing is intact, clean, dry, in place. No signs of active bleeding, discharge, or signs of infection. His left arm is in a sling as directed. He will wiggle all 5 digits. +2 radial pulse. Less than 2-second capillary refill. Normal sensation. Neurovascular intact. Discharge Data Procedures Performed Operation Date: 09/11/24 12:00 Actual Procedures p Left Reverse Total Shoulder Arthroplasty(Left) - Wisam Hernandez DO Ordered Studies 09/11/24 05:00 US - OR guided needle placemen Routine Hospital Course (1) Status post reverse total replacement of left shoulder: On September 11, 2024 Deepak arrived at [facility] and underwent a left reverse total shoulder arthroplasty performed by Dr. Hernandez with no complications. He had a general anesthetic. Postoperatively, he was transferred to the PACU for immediate postoperative management and then transferred to the general orthopedic floor in stable condition. His hospital course was uneventful. On postoperative day #1, his vital signs were stable and his pain was well-controlled. He participated well with physical therapy working on range of motion exercises. He was then discharged home in stable condition. He will follow-up with orthopedics in 2 weeks for postoperative management or sooner if needed. PG Care Time/CCT Total # of Minutes Spent Total Time Spent with Patient: Total time spent is greater than 50% in coordination of care (as documented) at patient's floor/unit and/or counseling patient: Discharge Plan Discharge Items Patient Disposition: Home - Home Health Services Reason For Visit: Left Shoulder Arthritis Discharge Diagnosis: Status post left reverse total shoulder arthroplasty Activity: Per Instructions section Non-emergency contact: Surgeon Call non-emergency contact if: your temperature is above 101.5, your wound has increased redness, your wound has increased drainage and your wound pain has increased Follow-up/Referrals: Naresh Booth D.O. [Primary Care Provider] - Diet: Regular Addtl Attending Provider Instructions: Activity and Therapy Recommendations: * Wear your sling for 3 weeks, unless otherwise instructed. You may remove your sling to shower and to dress, but otherwise, you should be in your sling at all times, including while sleeping * The shoulder replacement is very stable and you can use your hand while in the sling * Physical Therapy should start about 3-5 days from your day of surgery. Therapy will last about 8-12 weeks * You were shown a series of exercises in the hospital. Do these exercises daily including the exercises you were shown in physical therapy. * You may return to previous diet. Medications: * Narcotic You will likely be sent home from the hospital with a prescription for the narcotic pain medication that worked best throughout your stay. * Other medications may be prescribed for specific circumstances. If you have any questions, please call the office at . * Resume previous home medications unless otherwise instructed. Dressing Care: If the incision is not draining then you may leave the stella open to air. If there is a little bit of drainage or if the stella are getting stuck on your clothing then cover the incision with a dry dressing. The stella will be removed at your 2 week follow-up appointment. Showering: You may shower 5 days from the day of surgery. Let the soapy shower water run over the stella and pat them dry. Do not scrub or soak the incision. Things To Watch For: * Drainage from the incision site that occurs more than one week after your surgery. * Increased redness at the incision site. * Fever above 102 degrees Fahrenheit. * Unusual chest pain or shortness of breath. * Call [facility] at [phone] with any of the above problems. Follow-Up Visit: Follow-up with Dr. Hernandez 2-3 weeks after your day of surgery. An appointment was probably scheduled when you signed-up for surgery in the office. If you have any questions call . Office Instructions: More detailed instructions as well as Frequently Asked Questions were provided in a folder by our office when you signed-up for surgery. Please review these instructions when you get home. If you have any further questions or concerns, please feel free to call the office at [phone]. Pending Studies at Discharge: No Stand-Alone Forms: My [facility] Medications and DC Order Prescriptions: New cefadroxil 500 mg capsule 500 mg PO BID 10 Days Qty: 20 0RF oxycodone 5 mg tablet 5 mg PO Q6H PRN (Reason: pain) Qty: 30 0RF Continued amoxicillin 500 mg tablet 2,000 mg PO ONCE Qty: 4 3RF Rx Instructions: 4 tabs 1 hour prior to procedure cetirizine [Zyrtec] 10 mg Tablet 10 mg PO QAM lamotrigine [Lamictal] 25 mg Tablet 100 mg PO QAM tamsulosin 0.4 mg Capsule 0.4 mg PO HS simvastatin 20 mg Tablet 20 mg PO HS fluoxetine 20 mg Tablet 20 mg PO QAM levothyroxine [Synthroid] 200 mcg Tablet 200 mcg PO QAM multivitamin Capsule 1 cap PO QAM cholecalciferol (vitamin D3) [Vitamin D3] 50 mcg (2,000 unit) Capsule 50 mcg PO QAM lamotrigine [Lamictal XR] 50 mg Tablet Extended Release 24hr 50 mg PO HS magnesium 200 mg Tablet 400 mg PO QAM ibuprofen 800 mg Tablet 800 mg PO Q8H PRN (Reason: Pain) Gentamicin Nasal Solution 1 dose NA DAILY Patient Comments: due to hx sinus surgery Krames/Other Patient Handouts: Total Shoulder Replacement Surgery, Pain After Surg Admission Data Admit Date/Time: 09/11/24 13:34 Attending Provider: Wisam Hernandez Admit Provider: Wisam Hernandez Primary Care Provider: Naresh Booth Other Interventions: Discharge Summary Assessment (RN) Last Done: 09/12/24 09:49
== END 2024-09-12 10:53 | disposition home health service (06) ==
LOC: 3E 10:04 → ASU 10:04